=== PATIENT | female | born 1960 | race Asian ===

== ENCOUNTER 2018-06-10 09:24 | Day surgery (SDC) | payer MEDICAID ==
[~2018-06-10] VITALS: Ht 157.5 cm; Wt 91.0 kg
[~2018-06-10 09:24] MED LIST: ASPI-986 PO; ATOR40TA70 PO; CLOP75TA33 PO; FURO-152 PO; GLIP10TA10 PO; METF850T2 PO; METO25TA6 PO; POTA8TAB4 PO
[2018-06-10] MEDS ORDERED: CYCLOPENTOLATE HCL 1% OPHTH DROPS 2ML RIGHTEYE SCH (10:20)
[2018-06-10] MEDS ORDERED: PHENYLEPHRINE HCL 10% OPHTH DROPS 5ML RIGHTEYE SCH (10:20)
[2018-06-10] MEDS ORDERED: TROPICAMIDE 1% OPHTH DROPS 15ML RIGHTEYE SCH (10:20)
[2018-06-10] MEDS ORDERED: SODIUM CHLORIDE 0.9% 1,000 ML IV SCH (11:00)
[2018-06-10] MEDS ORDERED: HYALURONATE SODIUM 14 MG/ML 0.85ML SYRINGE IO ONE (11:13)
[2018-06-10] MEDS ORDERED: TRIAMCINOLONE ACETONIDE 40MG/ML 1ML VIAL ONE (11:14)
[2018-06-10] MEDS ORDERED: BALANCED SALT IRRIG SOLN COMB1 500ML OP NR (11:30)
[2018-06-10] MEDS ORDERED: TRYPAN BLUE 0.5 ML DISP.SYRIN IO ONE ×2 (13:12→13:39)
[2018-06-10] MEDS ORDERED: PROPOFOL 200MG/20ML VIAL IV ONE (13:12)
[2018-06-10] MEDS ORDERED: LIDOCAINE HCL/PF 1% 10 MG/ML 5ML VIAL ONE (14:23)
[2018-06-10] MEDS ORDERED: CYCLOPENTOLATE HCL 1% OPHTH DROPS 2ML ONE (14:48)
[2018-06-10] MEDS ORDERED: BUPIVACAINE HCL/PF 0.75% (7.5MG/ML) 10ML ONE (14:48)
[2018-06-10] MEDS ORDERED: NEO/POLYMYX B SULF/DEXAMETH OPHTH OINT 3.5GM ONE (14:48)
[2018-06-10] MEDS ORDERED: TROPICAMIDE 1% OPHTH DROPS 15ML ONE (14:48)
[2018-06-10] MEDS ORDERED: LIDOCAINE HCL 2%/EPINEPHRINE 1:100,000 20 ML VIAL INFIL ONE (14:48)
[2018-06-10] MEDS ORDERED: LIDOCAINE HCL/PF 2% 20 MG/ML 10ML VIAL ONE (14:48)
[2018-06-10] MEDS ORDERED: BALANCED SALT IRRIG SOLN 15ML ONE (14:48)
[2018-06-10] MEDS ORDERED: OFLOXACIN 0.3% OPHTH SOLN 5ML ONE (14:48)
[2018-06-10] MEDS ORDERED: PREDNISOLONE ACETATE 1% OPHTH DROPS 1ML ONE (14:48)
[2018-06-10] MEDS ORDERED: TETRACAINE 0.5% OPHTH DROPS 4ML ONE (14:48)
== END 2018-06-10 15:20 | disposition home or self-care (01) ==
LOC: OR 09:24
PROVIDERS: ATTEND Ophthalmology
DX: H25.21 Age-related cataract, morgagnian type, right eye (principal); I11.9 Hypertensive heart disease without heart failure; I25.10 Atherosclerotic heart disease of native coronary artery without angina pectoris; E78.00 Pure hypercholesterolemia, unspecified; E11.9 Type 2 diabetes mellitus without complications; Z95.1 Presence of aortocoronary bypass graft; Z79.899 Other long term (current) drug therapy; Z79.82 Long term (current) use of aspirin; Z98.890 Other specified postprocedural states
CPT/HCPCS: 66984; 82962; J3490; J7030; Q9957; V2632; J2704; J3301